=== PATIENT | female | born 1965 | race Caucasian/White ===

== ENCOUNTER 2019-07-20 | Emergency (ER) | payer SELFPAY ==
[~2019-07-20] MED LIST: AUGMENTIN875TAB PO; LORTAB 5 OR; ULTRAM50 M1 PO
[2019-07-21] MEDS ORDERED: LORTAB 5/3255 MG PO (00:23)
[2019-07-21] MEDS ORDERED: IBUPROFEN600 MG PO (00:23)
== END 2019-07-21 01:00 | disposition home or self-care (01) | DRG 563 ==
DX: S42.301A Unspecified fracture of shaft of humerus, right arm, initial encounter for closed fracture (principal); I10 Essential (primary) hypertension; F17.200 Nicotine dependence, unspecified, uncomplicated; W18.2XXA Fall in (into) shower or empty bathtub, initial encounter; Y93.E1 Activity, personal bathing and showering; Y92.002 Bathroom of unspecified non-institutional (private) residence as the place of occurrence of the external cause

== ENCOUNTER 2023-10-26 18:37 | Emergency (ER) | payer OTHER ==
[~2023-10-26] VITALS: Ht 157.5 cm; Wt 54.4 kg
[~2023-10-26 18:37] MED LIST changes: +IBUPROFEN600 MG PO; +LORTAB 5/3255 MG PO
[2023-10-26] MEDS ORDERED: traMADol HCL 50 MG/TAB PO ONE (19:20)
[2023-10-26] MEDS ORDERED: LIDOCAINE VISCOUS 2% 15 ML UDC PO ONE (19:20)
[2023-10-26] MEDS ORDERED: ACETAMINOPHEN 500 MG TAB PO ONE (19:20)
[2023-10-26] MEDS ORDERED: PENicillin V POTASSIUM 500 MG/TAB PO ONE (19:20)
[2023-10-26] MEDS ORDERED: PENICILLN VK500 MG PO (19:29)
[2023-10-26] MEDS ORDERED: LIDOCAINE HCL VIS2 % PO (19:29)
[2023-10-26] MEDS ORDERED: TRAMADOL HCL50 MG PO (19:29)
[2023-10-26 20:25] VITALS: BP 144/90
== END 2023-10-26 20:25 | disposition home or self-care (01) | DRG 159 ==
LOC: ED 18:37
DX: K14.8 Other diseases of tongue (principal); I10 Essential (primary) hypertension; F17.200 Nicotine dependence, unspecified, uncomplicated

== ENCOUNTER 2024-02-01 13:33 | Emergency (ER) | payer OTHER ==
[2024-02-01] VITALS (12 sets, daily range): BP systolic 121–143; BP diastolic 60–80
[~2024-02-01] VITALS: Ht 157.5 cm; Wt 51.0 kg
[~2024-02-01 13:33] MED LIST changes: +LIDOCAINE HCL VIS2 % PO; +PENICILLN VK500 MG PO; +TRAMADOL HCL50 MG PO
[2024-02-01] MEDS ORDERED: VANCOMYCIN HCL 1 GM in SODIUM CHLORIDE 0.9% 250 ML IV ONE (14:10)
[2024-02-01] MEDS ORDERED: ONDANSETRON HCl 4 MG/2 ML SDV IV ONE (14:10)
[2024-02-01] MEDS ORDERED: SODIUM CHLORIDE 0.9% 1,000 ML IV ONE (14:10)
[2024-02-01] MEDS ORDERED: PIPERACILLIN Sodium-Tazobactam 3.375 GM in SODIUM CHLORIDE 0.9% 100 ML IV ONE (14:10)
[2024-02-01] MEDS ORDERED: MORPHINE SULFATE 4 MG/ML VIAL IV ONE ×3 (14:10→21:45)
[2024-02-01] MEDS ORDERED: AMPICILLIN & SULBACTAM SODIUM 3 GM in SODIUM CHLORIDE 0.9% 100 ML IV ONE (14:30)
[2024-02-01 15:16] LABS: BASO% 0.3 % (0-3); EOS% 0.3 % (0-8); IMMATURE GRANULOCYTES 0.9 % (0.0-5.0); LYMPH% 8.7 % (15-41); MEAN CORPUSCULAR HGB 35.4 pG CALC (26.0-32.0); MONO% 15.9 % (2-13); NEUT# 10.65 thou/uL (2.00-7.15); NEUT% 73.9 % (42-76); RED BLOOD COUNT 2.46 mill/uL (4.20-5.60)
[2024-02-01 15:18] LABS: HEMATOCRIT 27.2 % (37.0-47.0); HEMOGLOBIN 8.7 g/dl (12.0-16.0); MEAN CELL VOLUME 110.6 fL CALC (80.0-100.0)
[2024-02-01 15:29] LABS: ALBUMIN 2.8 g/dL (3.2-5.0); BILIRUBIN, TOTAL 0.2 mg/dL (0.02-1.3); CREATININE 0.3 mg/dL (0.5-1.0); POTASSIUM 4.8 mmol/l (3.5-5.1); TOTAL PROTEIN 6.3 g/dL (6.3-8.2)
[2024-02-01] MEDS ORDERED: ACETAMINOPHEN500 M1 FT (15:31)
[2024-02-01] MEDS ORDERED: CLA FT (15:33)
[2024-02-01] MEDS ORDERED: AMOXICILLIN FT (15:33)
[2024-02-01] MEDS ORDERED: CHLORHEX GLU0.12 % PO (15:34)
[2024-02-01] MEDS ORDERED: GABAPENTIN100 MG FT (15:35)
[2024-02-01] MEDS ORDERED: OXYCODONE20 M1 PO (15:37)
[2024-02-01] MEDS ORDERED: DOCUSATE SODIU100 MG FT (15:38)
[2024-02-01] MEDS ORDERED: AMPICILLIN & SULBACTAM SODIUM 3 GM in SODIUM CHLORIDE 0.9% 100 ML IV SCH (18:00)
[2024-02-01] MEDS ORDERED: MORPHINE SULFATE 4 MG/ML VIAL IV PRN (18:30)
[2024-02-01] MEDS ORDERED: ONDANSETRON HCl 4 MG/2 ML SDV IV PRN (18:30)
[2024-02-01] MEDS ORDERED: ENOXAPARIN SODIUM 40 MG/0.4 ML SYR SC SCH (21:00)
[2024-02-01] MEDS ORDERED: ACETAMINOPHEN 325 MG/TAB PO ONE (21:45)
[2024-02-01] MEDS ORDERED: MELATONIN 3 MG/TAB PO ONE (23:05)
[2024-02-02 05:53] LABS: BASO% 0.3 % (0-3); EOS% 0.8 % (0-8); HEMATOCRIT 25.5 % (37.0-47.0); HEMOGLOBIN 8.1 g/dl (12.0-16.0); IMMATURE GRANULOCYTES 0.7 % (0.0-5.0); LYMPH% 12.9 % (15-41); MEAN CELL VOLUME 115.4 fL CALC (80.0-100.0); MEAN CORPUSCULAR HGB 36.7 pG CALC (26.0-32.0); MEAN CORPUSCULAR HGB CONC 31.8 g/dL CAL (32.0-36.0); MONO% 18.1 % (2-13); NEUT# 8.72 thou/uL (2.00-7.15); NEUT% 67.2 % (42-76); RED BLOOD COUNT 2.21 mill/uL (4.20-5.60)
[2024-02-02 06:05] LABS: ALBUMIN 2.3 g/dL (3.2-5.0); CREATININE 0.3 mg/dL (0.5-1.0); POTASSIUM 4.4 mmol/l (3.5-5.1); TOTAL PROTEIN 5.4 g/dL (6.3-8.2)
[2024-02-02 06:12] LABS: BILIRUBIN, TOTAL 0.3 mg/dL (0.02-1.3)
[2024-02-02 07:26] VITALS: BP 133/70
[2024-02-02] MEDS ORDERED: oxyCODONE HCL 15 MG/TAB PO ONE (09:50)
[2024-02-02 13:51] VITALS: BP 121/63
[2024-02-02] MEDS ORDERED: LORazepam 1 MG/TAB VT PRN (14:10)
[2024-02-02] MEDS ORDERED: oxyCODONE HCL 15 MG/TAB VT PRN (14:15)
[2024-02-02 17:34] VITALS: BP 162/80
[2024-02-02 21:37] VITALS: BP 121/73
[2024-02-03 01:33] VITALS: BP 124/67
[2024-02-03 06:24] VITALS: BP 160/79
[2024-02-03 07:09] VITALS: BP 109/69
[2024-02-03 08:02] VITALS: BP 129/70
[2024-02-03 12:38] VITALS: BP 140/85
[2024-02-03 16:20] VITALS: BP 134/66
[2024-02-03] MEDS ORDERED: MORPHINE SULFATE 4 MG/ML VIAL IV ONE (21:30)
[2024-02-04 06:17] VITALS: BP 147/78
[2024-02-04] MEDS ORDERED: SODIUM CHLORIDE 0.9% 1,000 ML IV ONE (07:05)
[2024-02-04 07:50] LABS: BASO% 0.8 % (0-3); EOS% 1.8 % (0-8); HEMATOCRIT 27.5 % (37.0-47.0); HEMOGLOBIN 8.8 g/dl (12.0-16.0); IMMATURE GRANULOCYTES 0.6 % (0.0-5.0); LYMPH% 9.8 % (15-41); MEAN CORPUSCULAR HGB 34.4 pG CALC (26.0-32.0); MONO% 13.3 % (2-13); NEUT# 7.79 thou/uL (2.00-7.15); NEUT% 73.7 % (42-76); RED BLOOD COUNT 2.56 mill/uL (4.20-5.60); RED CELL DISTRI WIDTH 14.4 % (11.5-15.5)
[2024-02-04 08:03] LABS: MEAN CELL VOLUME 107.4 fL CALC (80.0-100.0)
[2024-02-04 08:19] LABS: BILIRUBIN, TOTAL 0.3 mg/dL (0.02-1.3); CREATININE 0.3 mg/dL (0.5-1.0); POTASSIUM 4.4 mmol/l (3.5-5.1); TOTAL PROTEIN 6.2 g/dL (6.3-8.2)
[2024-02-04 08:20] LABS: ALBUMIN 2.8 g/dL (3.2-5.0)
[2024-02-04] MEDS ORDERED: MORPHINE SULFATE 4 MG/ML VIAL IV PRN (09:00)
[2024-02-04 10:09] VITALS: BP 147/78
== END 2024-02-04 10:11 | disposition short-term general hospital (02) | DRG 920 ==
LOC: ED 13:33
PROVIDERS: Family Medicine
DX: T81.30XA Disruption of wound, unspecified, initial encounter (principal); T81.41XA Infection following a procedure, superficial incisional surgical site, initial encounter
CPT/HCPCS: J1650